=== PATIENT | male | born 1955 | race Caucasian/White ===

== ENCOUNTER 2017-05-27 04:08 | Inpatient (IN) | payer BC ==
[2017-05-27] VITALS (7 sets, daily range): BP systolic 108–151; BP diastolic 58–95
[~2017-05-27] VITALS: Ht 175.2 cm; Wt 88.9 kg
--- NOTE | ~2017-05-27 | PR ---
[place], [place] PROGRESS NOTE NAME: VENTURA SUAREZ UNIT #: [id number] ROOM: 512 DOCTOR: BRAULIO BAKER MD BIRTHDATE: [birth year] DOS: 05/28/2017 REASON FOR VISIT: Chest pain. SUBJECTIVE: The patient is feeling better. Chest pain is much resolved. Denies any palpitation or dizziness. No orthopnea, no PND, no fever and chills, no cough. REVIEW OF SYSTEMS: Review of the 8 systems negative except as mentioned above. RHYTHM STRIPS: The patient in sinus rhythm. PHYSICAL EXAMINATION: VITAL SIGNS: Blood pressure 126/76, pulse 84, respiratory rate 16. GENERAL: Alert, comfortable, in no acute distress. HEENT: Pupils are round and equal. No jaundice. Tongue was moist and pharynx was clear. NECK: Supple, no distended neck veins, no carotid bruit. CHEST: Symmetrical, nontender. LUNGS: Clear to auscultation bilaterally. HEART: Regular rate and rhythm, no S3, no palpable thrills. EXTREMITIES: Showed no edema. Distal pulses are palpable. SKIN: Warm and dry. No cyanosis, no clubbing. NEUROLOGIC: The patient is alert, oriented. No focal neurologic deficit. RECTAL: Deferred. GENITOURINARY: Deferred. LABORATORY DATA: Labs reviewed as available. IMPRESSION: 1. Atypical chest pain, appears to be musculoskeletal pain, currently better. 2. Hypertension, stable. 3. Remote history of coronary artery disease with myocardial infarction in 1989. 4. Non-morbid obesity. RECOMMENDATIONS: 1. Continue current medications. 2. He is going home today. 3. I would recommend outpatient stress and echo due to his known coronary disease and CAD risk factors. 4. Risk modification, especially diet, exercise were discussed. 5. Above treatment plan discussed with the patient and his family member who was at bedside. FOLLOWUP: We will follow him in the office in few weeks. [place], [place] PROGRESS NOTE NAME: VENTURA SAUREZ UNIT #: [id number] ROOM: 512 DOCTOR: BRAULIO BAKER MD BIRTHDATE: [birth year] BRAULIO BAKER MD CM:PNTRANS [id number] BRAULIO BAKER MD 05/28/17 1350 interface
--- NOTE | ~2017-05-27 | EKG ---
[place], [place] ELECTROCARDIOGRAM REPORT NAME: VENTURA SUAREZ UNIT #: [id number] ROOM: 512 DOCTOR: OLIVIA SHARPE,BRAULIO BIRTHDATE: [birth year] DOS: 05/27/2017 TIME: 4:18 a.m. INTERPRETATION: Sinus rhythm. BRAULIO BAKER MD CM:EKGRPT:ELECTROCARDIOGRAM REPORT [id number] BRAULIO BAEKR MD
--- NOTE | ~2017-05-27 | CON ---
[place], [place] REPORT OF CONSULTATION [id number] UNIT #: [id number] ROOM: 512 DOCTOR: BRAULIO BAKER MD BIRTHDATE: [birth year] DOS: 05/27/2017 REASON FOR CONSULTATION: Chest pain. CLINICAL HISTORY: The patient is a 62-year-old gentleman with history of hypertension, remote history of myocardial infarction, came to the Emergency Room for right-sided chest pain. This pain started around 7:00 p.m. last night while he is putting some trim on his house. He described this as a sharp and squeezing pain radiated to his right shoulder. The pain is worse with deep breath and also when he moves his shoulder. But no associated nausea, diaphoresis, or shortness of breath, no dizziness, no syncope. He did have some nausea, but no tingling, numbness or weakness. No headaches, no bladder or bowel symptoms, no double vision. No hemoptysis or cough. He was admitted to the hospital and a Cardiology consult for chest pain. He had remote history of myocardial infarction in , had a cardiac catheterization at that time and showed no significant blockages. His last stress test was several years ago. REVIEW OF SYSTEMS: Review of the 8 systems negative except as mentioned above. PAST MEDICAL HISTORY: 1. Coronary artery disease, remote myocardial infarction in 1989, details unknown. 2. Hypertension. 3. Dyslipidemia. PAST SURGICAL HISTORY: Noncontributory. ALLERGIES: No known drug allergies. HOME MEDICATIONS: Reviewed. FAMILY HISTORY: Father is healthy at 86. Mother had bypass surgery and hypertension. One sister has breast cancer. One brother had a myocardial infarction at the age of 58. One sister and one brother is healthy. PHYSICAL EXAMINATION: VITAL SIGNS: Blood pressure 108/58, pulse 88, respirations 18. GENERAL: Alert, comfortable, in no acute distress. HEENT: Pupils are round and equal. No jaundice. Tongue was moist and pharynx was clear. NECK: Supple, no distended neck veins, no carotid bruit. CHEST: Symmetrical. There is moderate tenderness in the right upper chest area, right infraclavicular area, but there is no local swelling or erythema. ABDOMEN: Benign, nontender. Bowel sounds normal. No palpable masses. EXTREMITIES: Showed no edema. Distal pulses are palpable. SKIN: Warm and dry. No cyanosis, no clubbing. NEUROLOGIC: The patient is alert, oriented. No focal neurologic deficit. RECTAL: Deferred. GENITOURINARY: Deferred. MUSCULOSKELETAL: The patient had mild tenderness in the right upper chest, but [place], [place] REPORT OF CONSULTATION NAME: VENTURA SUAREZ UNIT #: [id number] ROOM: 512 DOCTOR: OLIVIA SHARPE,BRAULIO BIRTHDATE: [birth year] no joint swelling. Medications, allergies and labs reviewed. IMAGING STUDIES: Reviewed. EKG showed normal sinus rhythm with no acute ST-T changes. IMPRESSION: 1. Atypical chest pain, myocardial infarction ruled out, appears to be musculoskeletal. 2. Remote history of myocardial infarction in with cardiac catheterization showed no significant disease. 3. Hypertension, stable. RECOMMENDATIONS: Chest pain appears to be atypical. He will need an exercise nuclear stress test, which can be done as an outpatient. The patient can be discharged home from the cardiac standpoint and we will follow him as an outpatient and we will plan for outpatient stress test and a 2D echo. Thank you, Dr. Lackey for asking us to evaluate this patient. BRAULIO BAKER MD CM:CONSTR:REPORT OF CONSULTATION 1306 05/27/17 2123 interface
[~2017-05-27 04:08] MED LIST: AMLODIPINE BESYL5 MG PO; ASA; ASPIRIN81 M1 PO; BENTYL10 MG PO; CADUET 5 MG; CADUET 5 MG PO; CELEBREX100 MG PO; CIPRO500 MG PO; CYCLOBENZAPRINE10 MG PO; FLOMAX0.4 MG PO; HYDROCODONE BIT1 T11 PO; HYDRODIURIL25 MG; KEFLEX500 MG PO; LIPITOR40 MG PO; MEDROL DOSEPAK4 MG PO; MOTRIN800 MG PO; NAPROSYN500 MG PO; PERCOCET 325 MG1 TA2 PO; PERCOCET 325 MG1 TA7 PO; TRILIPIX45 M1 PO; TRILPIX; VICODIN; ZOFRAN ODT4 MG SL
[2017-05-27 04:54] LABS: BASO % 0.5 % (0.0-1.0); EOS # 0.1 10*3/uL (0.0-0.4); EOS % 1.3 % (1.0-4.0); HEMATOCRIT 39.4 % (42.0-52.0); HEMOGLOBIN 13.6 g/dl (14.0-18.0); LYMPH # 1.6 10*3/uL (1.3-4.4); LYMPH % 26.5 % (27.0-41.0); MEAN CELL VOLUME 85.8 fl (80.0-94.0); MEAN CORPUSCULAR HGB 29.6 pg (27.0-31.0); MEAN CORPUSCULAR HGB CONC 34.5 g/dl (33.0-37.0); MEAN PLATELET VOLUME 8.9 fl (9.6-12.3); MONO # 0.7 10*3/uL (0.1-1.0); MONO % 12.2 % (3.0-9.0); NEUT # 3.5 10*3/uL (2.3-7.9); NEUT % 59.2 % (47.0-73.0); PLATELET COUNT AUTOMATED 268 10*3/uL (130-400); RED BLOOD COUNT 4.59 10*6/uL (4.50-5.90)
[2017-05-27 04:57] LABS: URINE AMPHETAMINES < 1000 (1000ng/ml); URINE BARBITURATES < 200 (200ng/ml); URINE BENZODIAZEPINES < 200 (200ng/ml); URINE CANNABINOIDS (THC) < 50 (50ng/ml); URINE COCAINE > 300 (300ng/ml); URINE METHADONE < 300 (300ng/ml); URINE OPIATES > 300 (300ng/ml)
[2017-05-27 04:58] LABS: URINE PHENCYCLIDINE < 25 (25ng/ml)
[2017-05-27 05:04] LABS: ACT PARTIAL THROMBO TIME 25.9 SECONDS (20.8-31.5)
[2017-05-27 05:10] LABS: ALBUMIN 3.8 gm/dl (3.1-4.5); ALKALINE PHOSPHATASE 50 U/L (45-117); BUN 16 mg/dl (7-24); CHLORIDE 104 mmol/L (98-107); CREATININE 1.09 mg/dL (0.70-1.30); MAGNESIUM 1.9 mg/dL (1.5-2.1); POTASSIUM 3.9 mmol/L (3.5-5.1); SGOT/AST 20 IU/L (3-35); SGPT/ALT 45 U/L (12-78); SODIUM 140 mmol/L (136-145); TOTAL PROTEIN 7.6 gm/dL (6.4-8.2)
[2017-05-27 05:11] LABS: TROPONIN I < 0.015 ng/ml (<0.045)
--- NOTE | 2017-05-27 05:53 | NUR ---
SECOND ATTEMPT TO CALL REPORT, NURSE IN ROOM UNABLE TO GET REPORT
--- NOTE | 2017-05-27 06:00 | NUR ---
PT TRANSPORTED TO FLOOR, BEDSIDE REPORT GIVEN TO JULIA BRYSON
--- NOTE | 2017-05-27 06:10 | NUR ---
A 62, admitted to , under the services of RINA Santos DO with a diagnosis of CHEST PAIN. Chief complaint is CHEST PAIN. Patient arrived via stretcher from ER. Monitor applied. Initial assessment completed. Vital signs taken and recorded. RINA SANTOS DO notified of admission to the unit. Orders received. See assessment for past medical history, medications and allergies. Patient and/or family oriented to unit. [facility] visitation policy reviewed. Clothing/patient valuable form completed. JULIA DELCID
--- NOTE | 2017-05-27 06:38 | NUR ---
PATIENT CAME TO FLOOR AT 0610, ALERT AND ORIENTED. C/O CHEST PAIN AND PAIN IN BACK. NO EDEMA NOTED OXYGEN INTACT VIA NC.
--- NOTE | 2017-05-27 08:49 | NUR ---
DR HIGGINBOTHAM IN TO SEE PT. PT ADMITS TO RIGHT SIDED "ACHEY" TYPE PAIN TO ANTERIOR & POSTERIOR UPPER CHEST WALL. PT DENIES S.O.B CHEST PAIN OR S.O.B. DR HIGGINBOTHAM EXAMINED LEFT EAR. CALL LIGHT SYSTEM REINFORCED FOR ASSISTANCE.
--- NOTE | 2017-05-27 09:53 | NUR ---
MEDICATED PO ORDERED PER PT REQUEST WITH [facility] FOR C/O RT UPPER CHEST WALL & RT POSTERIOR CHEST WALL PAIN. PT RATES PAIN 04/02. SEE EMAR.
--- NOTE | 2017-05-27 10:51 | NUR ---
DR BAKER BED WORKER, NOTIIFIED OF CONSULT. NO NEW ORDERS.
[2017-05-27] MEDS ORDERED: AMLODIPINE BESY10 MG PO (11:00)
--- NOTE | 2017-05-27 11:01 | NUR ---
SPOKE WITH PHARMACIST AT [facility] WHO STATES PT HAS NOT HAD PRESCRIPTIONS FILLED THERE FOR QUITE SOME TIME. PT IS UNSURE OF NEDS, CALLED , SUNIL WHO VERIFIED HOME MEDICATIONS. SHE STATES ALL MEDS ARE MAIL ORDERED.
--- NOTE | 2017-05-27 11:48 | NUR ---
DR BAKER IN TO SEE PT.
--- NOTE | 2017-05-27 12:00 | NUR ---
PT STATES MEDICATION EFFECTIVE IN RELIEVING DISCOMFORT. WILL CONTINUE TO MONITOR.
--- NOTE | 2017-05-27 17:29 | NUR ---
AMBULATORY IN HALLS.
[2017-05-28] VITALS: BP 122/70
--- NOTE | 2017-05-28 00:16 | NUR ---
PATIENT ASLEEP IN BED AT THIS TIME, EASILY AROUSABLE. RESPIRATIONS EASY. NO S/S OF DISTRESS NOTED. CALL LIGHT LEFT IN REACH.
--- NOTE | 2017-05-28 04:21 | NUR ---
PATIENT SLEEPING IN BED. RESPIRATIONS EASY. NO S/S OF DISTRESS NOTED. WILL MONITOR. CALL LIGHT IN REACH.
[2017-05-28 06:35] LABS: BASO % 0.1 % (0.0-1.0); HEMATOCRIT 39.8 % (42.0-52.0); HEMOGLOBIN 13.5 g/dl (14.0-18.0); LYMPH # 1.2 10*3/uL (1.3-4.4); LYMPH % 11.3 % (27.0-41.0); MEAN CELL VOLUME 85.2 fl (80.0-94.0); MEAN CORPUSCULAR HGB 28.9 pg (27.0-31.0); MEAN CORPUSCULAR HGB CONC 33.9 g/dl (33.0-37.0); MEAN PLATELET VOLUME 9.5 fl (9.6-12.3); MONO # 0.2 10*3/uL (0.1-1.0); MONO % 1.8 % (3.0-9.0); NEUT # 9.4 10*3/uL (2.3-7.9); NEUT % 86.5 % (47.0-73.0); PLATELET COUNT AUTOMATED 292 10*3/uL (130-400); RED BLOOD COUNT 4.67 10*6/uL (4.50-5.90); RED CELL DISTRI WIDTH 12.8 % (0-14.5); WHITE BLOOD COUNT 10.8 10*3/uL (4.8-10.8)
[2017-05-28 07:05] LABS: ALBUMIN 3.7 gm/dl (3.1-4.5); BUN 18 mg/dl (7-24); CHLORIDE 103 mmol/L (98-107); CHOLESTEROL 212 mg/dL (<200); CREATININE 0.96 mg/dL (0.70-1.30); MAGNESIUM 2.1 mg/dL (1.5-2.1); PHOSPHOROUS 2.4 mg/dL (2.5-4.9); POTASSIUM 3.9 mmol/L (3.5-5.1); SGOT/AST 11 IU/L (3-35); SGPT/ALT 35 U/L (12-78); SODIUM 140 mmol/L (136-145); TRIGLYCERIDES 111 mg/dl (<150); VLDL CHOLESTEROL 22 mg/dL (6-40)
[2017-05-28 07:13] LABS: ALKALINE PHOSPHATASE 44 U/L (45-117); HDL CHOLESTEROL 62 mg/dl (40-60); LDL CHOLESTEROL 128 mg/dL (9-159); THYROID STIM HORMONE (HS) 0.475 uIU/ml (0.358-4.75); TOTAL PROTEIN 7.9 gm/dL (6.4-8.2)
[2017-05-28 07:44] LABS: VITAMIN D, 25-HYDROXY 24.2 ng/mL (30-100)
[2017-05-28 08:00] VITALS: BP 126/76
--- NOTE | 2017-05-28 08:00 | NUR ---
RESTING COMFORTABLY, DENIES C/O AT PRESENT TIME. CALL LIGHT SYSTEM REINFORCED FOR ASSISTANCE. SEE SHIFT ASSESSMENT.
[2017-05-28] MEDS ORDERED: PREDNISONE50 MG PO (11:41)
[2017-05-28 12:00] VITALS: BP 130/86
[2017-05-28] MEDS ORDERED: LEVAQUIN750 M1 PO (12:07)
--- NOTE | 2017-05-28 14:44 | NUR ---
Discharge instructions reviewed with patient/family. Patient receptive and verbalizes understanding. Written instructions given to patient/family. KARTHIK BOX
== END 2017-05-28 14:44 | disposition home or self-care (01) | DRG 206 ==
LOC: ED 04:08 → EDHOLD 05:21 → 5E 05:27
PROVIDERS: Hospitalist; Student in an Organized Health Care Education/Training Program; ADMIT Internal Medicine
DX: M94.0 Chondrocostal junction syndrome [Tietze] (principal); E83.39 Other disorders of phosphorus metabolism; I10 Essential (primary) hypertension; H66.92 Otitis media, unspecified, left ear; F14.10 Cocaine abuse, uncomplicated; I25.10 Atherosclerotic heart disease of native coronary artery without angina pectoris; E78.5 Hyperlipidemia, unspecified; K21.9 Gastro-esophageal reflux disease without esophagitis; M21.371 Foot drop, right foot; E66.8 Other obesity; R73.03 Prediabetes; I25.2 Old myocardial infarction; Z87.828 Personal history of other (healed) physical injury and trauma; Z78.9 Other specified health status; Z68.28 Body mass index [BMI] 28.0-28.9, adult; Z79.899 Other long term (current) drug therapy; Z87.891 Personal history of nicotine dependence; Z82.49 Family history of ischemic heart disease and other diseases of the circulatory system; Z83.3 Family history of diabetes mellitus; Z82.3 Family history of stroke

== ENCOUNTER 2019-02-20 13:30 | Emergency (ER) | payer BC ==
[~2019-02-20] VITALS: Ht 177.8 cm; Wt 88.5 kg
[~2019-02-20 13:30] MED LIST changes: +AMLODIPINE BESY10 MG PO; +LEVAQUIN750 M1 PO; +PREDNISONE50 MG PO
[2019-02-20 13:33] VITALS: BP 133/82
[2019-02-20 13:58] LABS: BILIRUBIN NEGATIVE (NEGATIVE); BLOOD NEGATIVE (NEGATIVE); CLARITY CLEAR (CLEAR); COLOR YELLOW (YELLOW); GLUCOSE NEGATIVE (NEGATIVE); KETONE NEGATIVE (NEGATIVE); LEUKO ESTERASE TRACE (NEGATIVE); NITRITE NEGATIVE (NEGATIVE); SPECIFIC GRAVITY <= 1.005 (1.005-1.030); UROBILINOGEN 0.2 E.U./dl (0.2-1.0)
[2019-02-20 14:11] LABS: BACTERIA TRACE; EPITHELIAL CELLS 0-2
[2019-02-20] MEDS ORDERED: CIPRO500 MG PO (15:35)
[2019-02-20] MEDS ORDERED: Motrin,Rufen800 MG PO ×2 (15:35→15:37)
[2019-04-05] MEDS ORDERED: DELTASONE20 M1 PO (21:06)
[2019-04-05] MEDS ORDERED: CYCLOBENZAPRINE10 MG PO (21:06)
== END 2019-02-20 15:40 | disposition home or self-care (01) ==
LOC: ED 13:30
PROVIDERS: Emergency Medicine
DX: N39.0 Urinary tract infection, site not specified (principal); I25.2 Old myocardial infarction; Z87.442 Personal history of urinary calculi; Z87.891 Personal history of nicotine dependence; Z88.8 Allergy status to other drugs, medicaments and biological substances

== ENCOUNTER 2019-09-24 21:27 | Emergency (ER) | payer BC ==
[~2019-09-24] VITALS: Ht 177.8 cm; Wt 86.2 kg
[~2019-09-24 21:27] MED LIST changes: +DELTASONE20 M1 PO; +Motrin,Rufen800 MG PO
[2019-09-24 21:32] VITALS: BP 137/87
== END 2019-09-24 22:54 | disposition home or self-care (01) ==
LOC: ED 21:27
DX: J10.1 Influenza due to other identified influenza virus with other respiratory manifestations (principal); R19.7 Diarrhea, unspecified; F17.210 Nicotine dependence, cigarettes, uncomplicated; Z79.899 Other long term (current) drug therapy

== ENCOUNTER 2020-01-18 00:23 | Emergency (ER) | payer BC ==
[~2020-01-18] VITALS: Ht 177.8 cm; Wt 88.5 kg
[2020-01-18 00:30] VITALS: BP 132/93
[2020-01-18 00:49] LABS: BASO # 0.1 10*3/uL (0.0-0.1); BASO % 1.1 % (0.0-1.0); EOS # 0.1 10*3/uL (0.0-0.4); EOS % 1.9 % (1.0-4.0); HEMATOCRIT 42.2 % (42.0-52.0); LYMPH # 2.1 10*3/uL (1.3-4.4); LYMPH % 39.5 % (27.0-41.0); MEAN CORPUSCULAR HGB 29.9 pg (27.0-31.0); MEAN CORPUSCULAR HGB CONC 34.4 g/dl (33.0-37.0); MEAN PLATELET VOLUME 8.8 fl (9.6-12.3); MONO # 0.6 10*3/uL (0.1-1.0); MONO % 11.1 % (3.0-9.0); NEUT # 2.5 10*3/uL (2.3-7.9); NEUT % 46.2 % (47.0-73.0); PLATELET COUNT AUTOMATED 313 10*3/uL (130-400); RED BLOOD COUNT 4.85 10*6/uL (4.50-5.90); RED CELL DISTRI WIDTH 12.7 % (0-14.5); WHITE BLOOD COUNT 5.3 10*3/uL (4.8-10.8)
[2020-01-18 01:00] LABS: ACT PARTIAL THROMBO TIME 27.3 SECONDS (20.0-32.1)
[2020-01-18 01:05] LABS: ALKALINE PHOSPHATASE 52 U/L (45-117); BUN 14 mg/dl (7-24); CHLORIDE 104 mmol/L (98-107); CREATININE 1.17 mg/dL (0.70-1.30); POTASSIUM 3.3 mmol/L (3.5-5.1); SGOT/AST 26 IU/L (3-35); SGPT/ALT 61 U/L (12-78); SODIUM 138 mmol/L (136-145); TOTAL PROTEIN 8.1 gm/dL (6.4-8.2); TROPONIN I < 0.015 ng/ml (<0.045)
== END 2020-01-18 04:07 | disposition home or self-care (01) ==
LOC: ED 00:23
PROVIDERS: Emergency Medicine Emergency Medical Services
DX: R07.9 Chest pain, unspecified (principal); K21.9 Gastro-esophageal reflux disease without esophagitis; I10 Essential (primary) hypertension; E78.00 Pure hypercholesterolemia, unspecified; I25.2 Old myocardial infarction; J45.909 Unspecified asthma, uncomplicated; Z79.899 Other long term (current) drug therapy

== ENCOUNTER → 2020-03-13 | Outpatient (CLI) | payer BC ==
[2020-03-13 06:14] LABS: ALKALINE PHOSPHATASE 46 U/L (45-117); BUN 26 mg/dl (7-24); CHLORIDE 107 mmol/L (98-107); CHOLESTEROL 218 mg/dL (<200); CREATININE 1.08 mg/dL (0.70-1.30); HDL CHOLESTEROL 36 mg/dl (40-60); LDL CHOLESTEROL 115 mg/dL (9-159); SGOT/AST 29 IU/L (3-35); SGPT/ALT 68 U/L (12-78); SODIUM 138 mmol/L (136-145); TOTAL PROTEIN 7.9 gm/dL (6.4-8.2); TRIGLYCERIDES 333 mg/dl (<150); VLDL CHOLESTEROL 67 mg/dL (6-40)
== END | disposition home or self-care (01) ==
LOC: LAB 05:04
PROVIDERS: Family Medicine
DX: I10 Essential (primary) hypertension (principal); E78.1 Pure hyperglyceridemia; R06.00 Dyspnea, unspecified

== ENCOUNTER 2020-04-30 16:58 | Emergency (ER) | payer BC ==
[~2020-04-30] VITALS: Wt 86.2 kg
[2020-04-30 17:04] VITALS: BP 156/84
[2020-04-30 19:18] LABS: BASO % 0.9 % (0.0-1.0); EOS # 0.1 10*3/uL (0.0-0.4); HEMATOCRIT 41.7 % (42.0-52.0); LYMPH # 2.1 10*3/uL (1.3-4.4); LYMPH % 44.5 % (27.0-41.0); MEAN CELL VOLUME 85.6 fl (80.0-94.0); MEAN CORPUSCULAR HGB 29.8 pg (27.0-31.0); MEAN CORPUSCULAR HGB CONC 34.8 g/dl (33.0-37.0); MONO # 0.5 10*3/uL (0.1-1.0); MONO % 10.2 % (3.0-9.0); NEUT # 1.9 10*3/uL (2.3-7.9); NEUT % 41.2 % (47.0-73.0); PLATELET COUNT AUTOMATED 289 10*3/uL (130-400); RED BLOOD COUNT 4.87 10*6/uL (4.50-5.90); RED CELL DISTRI WIDTH 12.8 % (0-14.5); WHITE BLOOD COUNT 4.6 10*3/uL (4.8-10.8)
[2020-04-30 19:30] LABS: ACT PARTIAL THROMBO TIME 27.1 SECONDS (20.0-32.1)
[2020-04-30 19:32] LABS: ALBUMIN 4.2 gm/dl (3.1-4.5); ALKALINE PHOSPHATASE 45 U/L (45-117); BUN 20 mg/dl (7-24); CHLORIDE 104 mmol/L (98-107); CREATININE 1.22 mg/dL (0.70-1.30); LIPASE 99 U/L (73-393); POTASSIUM 3.5 mmol/L (3.5-5.1); SGOT/AST 29 IU/L (3-35); SGPT/ALT 72 U/L (12-78); SODIUM 138 mmol/L (136-145); TOTAL PROTEIN 8.2 gm/dL (6.4-8.2)
[2020-04-30 19:32] LABS: BILIRUBIN NEGATIVE (NEGATIVE); BLOOD NEGATIVE (NEGATIVE); CLARITY SL CLOUDY (CLEAR); COLOR YELLOW (YELLOW); GLUCOSE NEGATIVE (NEGATIVE); KETONE NEGATIVE (NEGATIVE); LEUKO ESTERASE NEGATIVE (NEGATIVE); NITRITE NEGATIVE (NEGATIVE)
[2020-04-30 19:33] LABS: TROPONIN I < 0.015 ng/ml (<0.045)
[2020-04-30 19:41] LABS: BACTERIA 2+; EPITHELIAL CELLS 0-2; RBC 0-2 rbc/hpf (0-2)
[2020-04-30 19:42] LABS: MUCOUS TRACE
== END 2020-04-30 21:03 | disposition home or self-care (01) ==
LOC: ED 16:58
PROVIDERS: Physician Assistant
DX: A08.4 Viral intestinal infection, unspecified (principal); R79.1 Abnormal coagulation profile; Z79.899 Other long term (current) drug therapy; Z87.891 Personal history of nicotine dependence

== ENCOUNTER → 2020-12-09 | Outpatient (CLI) | payer BC | END | disposition home or self-care (01) | LOC: US 07:06 | PROVIDERS: ATTEND Internal Medicine | DX: K76.0 Fatty (change of) liver, not elsewhere classified (principal); K80.20 Calculus of gallbladder without cholecystitis without obstruction ==

== ENCOUNTER → 2021-10-13 | Outpatient (CLI) | payer OTHER ==
[2021-10-13 08:47] LABS: BASO % 0.8 % (0.0-1.0); EOS # 0.1 10*3/uL (0.0-0.4); EOS % 1.4 % (1.0-4.0); HEMATOCRIT 41.7 % (42.0-52.0); LYMPH % 38.7 % (27.0-41.0); MEAN CELL VOLUME 87.8 fl (80.0-94.0); MEAN CORPUSCULAR HGB 29.7 pg (27.0-31.0); MEAN CORPUSCULAR HGB CONC 33.8 g/dl (33.0-37.0); MEAN PLATELET VOLUME 9.1 fl (9.6-12.3); MONO # 0.7 10*3/uL (0.1-1.0); MONO % 14.7 % (3.0-9.0); NEUT # 2.2 10*3/uL (2.3-7.9); NEUT % 44.2 % (47.0-73.0); PLATELET COUNT AUTOMATED 264 10*3/uL (130-400); RED BLOOD COUNT 4.75 10*6/uL (4.50-5.90); RED CELL DISTRI WIDTH 12.7 % (0-14.5)
[2021-10-13 09:07] LABS: ALKALINE PHOSPHATASE 43 U/L (45-117); BUN 14 mg/dl (7-24); CHLORIDE 107 mmol/L (98-107); CREATININE 1.05 mg/dL (0.70-1.30); SGOT/AST 23 IU/L (3-35); SGPT/ALT 47 U/L (12-78); SODIUM 139 mmol/L (136-145); TOTAL PROTEIN 7.8 gm/dL (6.4-8.2)
== END | disposition home or self-care (01) ==
LOC: LAB 08:07
PROVIDERS: ATTEND Internal Medicine
DX: J44.1 Chronic obstructive pulmonary disease with (acute) exacerbation (principal)

== ENCOUNTER → 2022-02-16 | Day surgery (SDC) | payer OTHER ==
[~2022-02-16] VITALS: Ht 177.8 cm; Wt 89.8 kg
[~2022-02-16] MED LIST changes: +LIPITOR20 MG PO; +LOSARTAN POTASS25 M1 PO
[2022-02-16 07:37] VITALS: BP 122/79
[2022-02-16 09:17] VITALS: BP 113/77
[2022-02-16 09:32] VITALS: BP 120/82
[2022-02-16 09:47] VITALS: BP 131/83
[2022-02-16 10:02] VITALS: BP 113/77
== END | disposition home or self-care (01) ==
LOC: SDC 01-30 08:45
PROVIDERS: ATTEND Surgery
DX: Z12.11 Encounter for screening for malignant neoplasm of colon (principal); D12.2 Benign neoplasm of ascending colon; Z86.010 Personal history of colon polyps; K57.30 Diverticulosis of large intestine without perforation or abscess without bleeding; I10 Essential (primary) hypertension; K21.9 Gastro-esophageal reflux disease without esophagitis; I25.2 Old myocardial infarction; E78.00 Pure hypercholesterolemia, unspecified; J45.909 Unspecified asthma, uncomplicated; Z87.891 Personal history of nicotine dependence; Z79.899 Other long term (current) drug therapy

== ENCOUNTER → 2022-03-31 | Outpatient (CLI) | payer MEDICARE | END | disposition home or self-care (01) | LOC: US 10:21 | PROVIDERS: ATTEND Family Medicine | DX: I10 Essential (primary) hypertension (principal); E78.01 Familial hypercholesterolemia; Z13.6 Encounter for screening for cardiovascular disorders; Z87.891 Personal history of nicotine dependence ==

== ENCOUNTER → 2023-07-24 | Outpatient (CLI) | payer BC, MEDICARE | END | disposition home or self-care (01) | LOC: CARD 02:24 | PROVIDERS: ATTEND Internal Medicine Cardiovascular Disease | DX: I20.9 Angina pectoris, unspecified (principal) ==

== ENCOUNTER → 2024-09-12 | Outpatient (CLI) | payer BC, MEDICARE ==
[2024-09-12 11:03] LABS: BASO # 0.1 10*3/uL (0.0-0.1); BASO % 1.1 % (0.0-1.0); EOS # 0.1 10*3/uL (0.0-0.4); HEMATOCRIT 41.7 % (42.0-52.0); MEAN CELL VOLUME 87.1 fl (80.0-94.0); MEAN CORPUSCULAR HGB 29.9 pg (27.0-31.0); MEAN CORPUSCULAR HGB CONC 34.3 g/dl (33.0-37.0); MEAN PLATELET VOLUME 8.8 fl (9.6-12.3); MONO # 0.5 10*3/uL (0.1-1.0); MONO % 9.9 % (3.0-9.0); NEUT # 1.8 10*3/uL (2.3-7.9); NEUT % 39.5 % (47.0-73.0); PLATELET COUNT AUTOMATED 288 10*3/uL (130-400); RED BLOOD COUNT 4.79 10*6/uL (4.50-5.90); RED CELL DISTRI WIDTH 12.6 % (0-14.5); WHITE BLOOD COUNT 4.6 10*3/uL (4.8-10.8)
[2024-09-12 11:36] LABS: ALKALINE PHOSPHATASE 35 U/L (46-116); BUN 20 mg/dl (9-23); CHLORIDE 105 mmol/L (98-107); POTASSIUM 3.9 mmol/L (3.4-5.1); SGPT/ALT 28 U/L (5-49); TOTAL PROTEIN 7.9 gm/dL (6.0-8.0)
[2024-09-12 11:38] LABS: VITAMIN D, 25-HYDROXY 25.4 ng/mL (30-100)
== END | disposition home or self-care (01) ==
LOC: LAB 10:43
PROVIDERS: ATTEND Nurse Practitioner Family
DX: G47.19 Other hypersomnia (principal); R53.83 Other fatigue

== ENCOUNTER → 2024-10-23 | Outpatient (CLI) | payer BC, MEDICARE | END | disposition home or self-care (01) | LOC: LAB 12:03 | PROVIDERS: ATTEND Internal Medicine Critical Care Medicine | DX: R53.83 Other fatigue (principal); G25.81 Restless legs syndrome; G47.33 Obstructive sleep apnea (adult) (pediatric); Z68.28 Body mass index [BMI] 28.0-28.9, adult; Z87.891 Personal history of nicotine dependence ==

== ENCOUNTER → 2024-12-26 | Outpatient (CLI) | payer BC, MEDICARE ==
[2024-12-26 11:39] LABS: BASO # 0.1 10*3/uL (0.0-0.1); BASO % 1.2 % (0.0-1.0); EOS # 0.1 10*3/uL (0.0-0.4); EOS % 1.7 % (1.0-4.0); MEAN CELL VOLUME 88.6 fl (80.0-94.0); MEAN CORPUSCULAR HGB 29.3 pg (27.0-31.0); MEAN CORPUSCULAR HGB CONC 33.1 g/dl (33.0-37.0); MEAN PLATELET VOLUME 9.4 fl (9.6-12.3); MONO # 0.5 10*3/uL (0.1-1.0); MONO % 8.9 % (3.0-9.0); NEUT # 2.3 10*3/uL (2.3-7.9); NEUT % 44.2 % (47.0-73.0); PLATELET COUNT AUTOMATED 310 10*3/uL (130-400); RED BLOOD COUNT 4.74 10*6/uL (4.50-5.90); RED CELL DISTRI WIDTH 12.8 % (0-14.5); WHITE BLOOD COUNT 5.2 10*3/uL (4.8-10.8)
[2024-12-26 12:09] LABS: ALKALINE PHOSPHATASE 32 U/L (46-116); BUN 19 mg/dl (9-23); CHLORIDE 105 mmol/L (98-107); CHOLESTEROL 159 mg/dL (<200); LDL CHOLESTEROL 76 mg/dL (9-159); SGPT/ALT 34 U/L (5-49); TOTAL PROTEIN 7.5 gm/dL (6.0-8.0); TRIGLYCERIDES 197 mg/dl (<150)
== END | disposition home or self-care (01) ==
LOC: LAB 09:38
PROVIDERS: ATTEND Nurse Practitioner Family
DX: E78.2 Mixed hyperlipidemia (principal); M19.049 Primary osteoarthritis, unspecified hand; E11.9 Type 2 diabetes mellitus without complications; I10 Essential (primary) hypertension; R53.83 Other fatigue

== ENCOUNTER → 2025-03-16 | Outpatient (CLI) | payer MEDICARE ==
[2025-03-16 17:00] LABS: ALKALINE PHOSPHATASE 32 U/L (46-116); BUN 25 mg/dl (9-23); CHLORIDE 102 mmol/L (98-107); POTASSIUM 3.9 mmol/L (3.4-5.1); SGPT/ALT 35 U/L (5-49); TOTAL PROTEIN 7.6 gm/dL (6.0-8.0); VITAMIN D, 25-HYDROXY 36.6 ng/mL (30-100)
== END | disposition home or self-care (01) ==
LOC: RHCWE 11:58
PROVIDERS: ATTEND Nurse Practitioner Family
DX: Z12.5 Encounter for screening for malignant neoplasm of prostate (principal); I10 Essential (primary) hypertension; E11.9 Type 2 diabetes mellitus without complications; E78.2 Mixed hyperlipidemia; M19.049 Primary osteoarthritis, unspecified hand; R53.83 Other fatigue; E55.9 Vitamin D deficiency, unspecified

== ENCOUNTER → 2025-06-26 | Outpatient (CLI) | payer MEDICARE ==
[2025-06-26 18:16] LABS: VITAMIN D, 25-HYDROXY 38.1 ng/mL (30-100)
== END | disposition home or self-care (01) ==
LOC: RHCWE 09:28 → LAB 09:28
PROVIDERS: ATTEND Nurse Practitioner Family
DX: Z00.00 Encounter for general adult medical examination without abnormal findings (principal); R53.82 Chronic fatigue, unspecified; E55.9 Vitamin D deficiency, unspecified

== ENCOUNTER → 2025-08-28 | Outpatient (CLI) | payer MEDICARE | END | disposition home or self-care (01) | LOC: RAD 11:24 | PROVIDERS: ATTEND Nurse Practitioner Family | DX: M25.512 Pain in left shoulder (principal) ==

== ENCOUNTER → 2025-09-09 | Outpatient (CLI) | payer MEDICARE | END | disposition home or self-care (01) | LOC: MRI 09-04 01:59 | PROVIDERS: ATTEND Nurse Practitioner Family | DX: M19.012 Primary osteoarthritis, left shoulder (principal); M25.812 Other specified joint disorders, left shoulder; M25.512 Pain in left shoulder; Z74.09 Other reduced mobility ==